=== PATIENT | male | born 1950 | race Caucasian/White ===

== ENCOUNTER 2018-03-13 11:17 | Outpatient (REF) | payer OTHER, SELFPAY ==
[2018-03-13 19:27] LABS: Anion Gap 10.1 mmol/L (3-11); BUN 17 mg/dL (7-18); CO2 24.9 mmol/L (21.0-32.0); CREATININE 0.88 mg/dL (0.70-1.30); Chloride 104 mmol/L (98-107); Glucose 107 mg/dL (70-100); Potassium 4.4 mmol/L (3.5-5.1); Sodium 139 mmol/L (136-145)
[2018-03-13 20:06] LABS: COMMENT (LAB VIEW ONLY) 35.31 mg/dL
== END 2018-03-13 11:18 ==
LOC: NCHCN 11:17
PROVIDERS: PCP Physician Assistant Medical; Visit Provider Physician Assistant Medical
DX: E11.9 Type 2 diabetes mellitus without complications (principal)
CPT/HCPCS: 80048; 82043; 82570

== ENCOUNTER 2018-09-13 11:18 | Outpatient (REF) | payer OTHER, SELFPAY ==
[2018-09-17 11:19] LABS: PSA, Screening 1.7 ng/ml (0-4.5)
== END 2018-09-13 11:38 ==
LOC: NCHCN 11:18
PROVIDERS: PCP Physician Assistant Medical; Visit Provider Physician Assistant Medical
DX: Z12.5 Encounter for screening for malignant neoplasm of prostate (principal); N40.0 Benign prostatic hyperplasia without lower urinary tract symptoms
CPT/HCPCS: 84153

== ENCOUNTER 2019-04-15 10:31 | Outpatient (REF) | payer OTHER, SELFPAY ==
[2019-04-15 19:12] LABS: COMMENT (LAB VIEW ONLY) 19.01 mg/dL; Microalb ug/mg Crea 12.6 ug/mg Cr
[2019-04-15 20:12] LABS: ALT 65 U/L (16-63); AST 34 U/L (15-37); Albumin 3.7 g/dL (3.4-5.0); Alkaline Phosphatase 71 U/L (46-116); BUN 20 mg/dL (7-18); Bilirubin, Total 0.5 mg/dL (0.2-1.0); CREATININE 1.03 mg/dL (0.70-1.30); Calcium 8.9 mg/dL (8.5-10.1); Calculated LDL 62 mg/dL; Chloride 104 mmol/L (98-107); Cholesterol 120 mg/dL (50-200); Glucose 200 mg/dL (70-100); HDL Cholesterol 48 mg/dL (40-60); Potassium 4.7 mmol/L (3.5-5.1); Sodium 138 mmol/L (136-145); Total Protein 6.2 g/dL (6.4-8.2); Triglyceride 53 mg/dL (30-150)
== END 2019-04-15 10:51 ==
LOC: NCHCN 10:31
PROVIDERS: PCP Physician Assistant Medical; Visit Provider Nurse Practitioner Family
DX: E11.9 Type 2 diabetes mellitus without complications (principal); E78.5 Hyperlipidemia, unspecified
CPT/HCPCS: 80053; 80061; 82043; 82570

== ENCOUNTER 2020-05-20 11:33 | Outpatient (REF) | payer OTHER, SELFPAY ==
[2020-05-20 22:41] LABS: Anion Gap 14.4 mmol/L (3-11); BUN 25 mg/dL (7-18); CO2 21.6 mmol/L (21.0-32.0); CREATININE 1.04 mg/dL (0.70-1.30); Calcium 9.5 mg/dL (8.5-10.1); Chloride 102 mmol/L (98-107); Glucose 195 mg/dL (74-106); Potassium 4.4 mmol/L (3.5-5.1); Sodium 138 mmol/L (136-145)
== END 2020-05-20 11:53 ==
LOC: NCHCN 11:33
PROVIDERS: PCP Physician Assistant Medical; Visit Provider Nurse Practitioner Family
DX: E11.9 Type 2 diabetes mellitus without complications (principal)
CPT/HCPCS: 80048

== ENCOUNTER 2020-11-30 15:04 | Outpatient (REF) | payer OTHER, SELFPAY ==
[2020-11-30 16:28] LABS: ALT 55 U/L (16-63); AST 28 U/L (15-37); Albumin 3.9 g/dL (3.4-5.0); Alkaline Phosphatase 69 U/L (46-116); Anion Gap 8.2 mmol/L (3-11); BUN 18 mg/dL (7-18); Bilirubin, Total 0.7 mg/dL (0.2-1.0); CO2 28.8 mmol/L (21.0-32.0); CREATININE 0.9 mg/dL (0.70-1.30); Calcium 9.4 mg/dL (8.5-10.1); Chloride 104 mmol/L (98-107); Glucose 130 mg/dL (74-106); Potassium 4.6 mmol/L (3.5-5.1); Sodium 141 mmol/L (136-145); Total Protein 6.3 g/dL (6.4-8.2)
[2020-11-30 16:32] LABS: Hemoglobin A1C 6.7 % (<5.7)
[2020-11-30 16:42] LABS: Calculated LDL 64 mg/dL (<100); Cholesterol 136 mg/dL (<200); HDL Cholesterol 51 mg/dL (40-60); Triglyceride 108 mg/dL (<150)
== END 2020-11-30 15:05 | disposition home or self-care (01) ==
LOC: NCHCN 15:04
PROVIDERS: PCP Physician Assistant Medical; Visit Provider Nurse Practitioner Family
DX: E11.9 Type 2 diabetes mellitus without complications (principal); E78.5 Hyperlipidemia, unspecified
CPT/HCPCS: 80053; 80061; 83036

== ENCOUNTER 2021-10-06 16:04 | Outpatient (REF) | payer OTHER, SELFPAY ==
[2021-10-06 22:29] LABS: ALT 59 U/L (16-63); AST 27 U/L (15-37); Albumin 3.9 g/dL (3.4-5.0); Alkaline Phosphatase 70 U/L (46-116); Anion Gap 9.1 mmol/L (3-11); BUN 18 mg/dL (7-18); Bilirubin, Total 0.7 mg/dL (0.2-1.0); CO2 25.9 mmol/L (21.0-32.0); CREATININE 0.9 mg/dL (0.70-1.30); Chloride 104 mmol/L (98-107); Glucose 187 mg/dL (74-106); Potassium 4.5 mmol/L (3.5-5.1); Sodium 139 mmol/L (136-145); Total Protein 6.4 g/dL (6.4-8.2)
== END 2021-10-06 16:05 | disposition home or self-care (01) ==
LOC: NCHCN 16:04
PROVIDERS: PCP Physician Assistant Medical; Visit Provider Nurse Practitioner Family
DX: E11.9 Type 2 diabetes mellitus without complications (principal)
CPT/HCPCS: 80053

== ENCOUNTER 2021-10-18 10:56 | Day surgery (SDC) | payer OTHER, SELFPAY ==
--- NOTE | 2021-10-18 07:13 | ANES.PREOP_ITS ---
General Info Date of Service Date Performed: 10/18/21 Height: 5 ft 11 in Weight: 99.79 kg Body Mass Index (BMI): 30.7 Surgical Procedure: Operation Date: 10/18/21 14:40 Proposed Procedure Side Surgeon p Cataract Extraction with IOL Implant Right Darien Biggs MD Meds Allergies and Home Medications Allergies Allergy/AdvReac Type Severity Reaction Status Date / Time No Known Allergies Allergy Verified 10/18/21 11:19 Home Medication Medication Instructions Recorded aspirin 81 mg capsule,delayed 81 mg PO DAILY 10/15/21 release canagliflozin 100 mg tablet 100 mg PO DAILY 10/15/21 (Invokana) cholecalciferol (vitamin D3) 25 25 mcg PO DAILY 10/15/21 mcg (1,000 unit) tablet (Vitamin D3) insulin glargine 100 unit/mL (3 35 unit SUBCUT HS 10/15/21 mL) subcutaneous pen (Lantus Solostar U-100 Insulin) lisinopril 2.5 mg tablet 2.5 mg PO DAILY 10/15/21 loratadine 10 mg tablet 10 mg PO DAILY 10/15/21 metformin 1,000 mg tablet 1,000 mg PO BID 10/15/21 multivitamin 1 tab PO DAILY 10/15/21 omega-3 fatty acids 1 cap PO DAILY 10/15/21 simvastatin 20 mg tablet 20 mg PO DAILY 10/15/21 Current Visit Medications: Current Medications Generic Name Dose Route Start Last Admin Trade Name Freq PRN Reason Stop Dose Admin Acetaminophen 1,000 mg 10/18/21 06:00 Acetaminophen 500 Mg Tab PO Q4H PRN PRN Miscellaneous Medication 0 ml 10/18/21 06:00 Prednisolone 1%, Moxifloxacin 0.5%, Nepafenac 0.1% 5ml Btl OD DIRECTED [facility] Miscellaneous Medication 0 ml 10/18/21 06:00 Tropicam./Phenyleph. (1/2.5%) 5 Ml Btl OD DIRECTED [facility] Tetracaine HCl 0 ml 10/18/21 06:00 Tetracaine 0.5% 4 Ml Btl OD DIRECTED [facility] Medical History Medical History (Updated 10/18/21 @ 11:17 by Kranthi Bethea) Balanitis BPH (benign prostatic hyperplasia) HLD (hyperlipidemia) Hx of colonic polyps penitentiary (current) use of insulin Onychomycosis Seasonal allergies Severe aortic stenosis Trigger finger Type II diabetes mellitus Medical History Comments:: Pt. states when he has versed and fentanyl states it takes him hours and hours to wake up. Surgical History Surgical History (Updated 10/18/21 @ 11:18 by Kranthi Bethea) Hx of appendectomy Hx of pilonidal cyst Hx of tonsillectomy Tobacco Smoking/Tobacco Use Status: Never Alcohol Alcohol Intake: never Substance Use Substance use: Never Substance use type: does not use Vital Signs and Lab Results Lab Results Blood Type / Crossmatch: No Data to Display Complete Blood Count: No Data to Display Complete Metabolic Panel: Sodium Level 139 mmol/L (136-145) 10/06/21 09:10/06/21 Potassium Level 4.5 mmol/L (3.5-5.1) 10/06/21:10/06/21 Chloride Level 104 mmol/L (98-107) 10/06/21:10/06/21 Carbon Dioxide Level 25.9 mmol/L (21.0-32.0) 10/06/21:10/06/21 Blood Urea Nitrogen 18 mg/dL (7-18) 10/06/21:10/06/21 Creatinine 0.9 mg/dL (0.70-1.30) 10/06/21:10/06/21 Estimated GFR/1.73 m2 >= 60.00 (mL/min/1.73m2) 10/06/21 09:10/06/21 Calcium Level 9.0 mg/dL (8.5-10.1) 10/06/21:10/06/21 Albumin 3.9 g/dL (3.4-5.0) 10/06/21:10/06/21 Glucose Level 187 mg/dL (74-106) H 10/06/21:10/06/21 Liver Function Panel: Alanine Aminotransferase (ALT/SGPT) 59 U/L (16-63) 10/06/21 09:30 10/06/21 Aspartate Amino Transf (AST/SGOT) 27 U/L (15-37) 10/06/21 09:30 10/06/21 Coagulation Panel: No Data to Display Cardiac Panel: No Data to Display Arterial Blood Gas: No Data to Display Venous Blood Gas: No Data to Display Pancreas Panel: No Data to Display Thyroid Panel: No Data to Display Infectious Disease: No Data to Display Blood Cultures: No Data to Display Toxicology Panel: No Data to Display Anesthesia Assessment and Plan Anesthesia History Personal History: Other Family History: No Family History of Anesthesia Complications Exercise Tolerance Exercise Tolerance: Metabolic Equivalents>4 Cardiac & Pulmonary Exam Cardiac Exam: Heart Murmur Present Pulmonary Exam: Clear Bilateral Breath Sounds Implantable Cardiac Device Does patient have a Pacemaker or an ICD?: No Airway Exam Known Difficult Airway: No Mallampati Class: 3 Mouth Opening: Narrow (< 3cm) Thyromental Distance: Greater than 3 cm Neck Range of Motion: Limited ROM Neck Circumference: Normal Teeth Condition: Normal Dentition ASA Classification ASA Score: ASA 4 Emergency Case?: No NPO Status NPO Status: NPO Clears >2 hours, Solids >8 hours Anesthesia Plan Resuscitation Status: Full Code Anesthesia Technique: MAC Anesthesia Airway Planned: Natural Airway Monitors Used: Standard Monitors Preoperative Comments:: 71 yo male for cataract removal. Sig PMHx: severe , HTN, DM. No MKO, no symptoms from his , is going to schedule a TAVR in the near future.
[2021-10-18 11:19] VITALS: BP 142/79; PULSE 86; RESP 16; TEMP 36.6; O2SAT 97
[2021-10-18] MEDS: Tropicam./Phenyleph. (1/2.5%) 5 ML BTL OD ×3 (11:30→11:46)
[2021-10-18 11:36] VITALS: BMI 30.7
[2021-10-18] MEDS: Balanced Salt Soln.-PLUS 500 ML BAG (12:38)
[2021-10-18] MEDS: Tetracaine 0.5% 4 ML BTL OD (12:38)
[2021-10-18] MEDS: Duovisc Viscoelastic System EACH 1 EACH (12:39)
[2021-10-18] MEDS: Lidocaine 2% Jelly 6 ML SYR (12:40)
[2021-10-18] MEDS: Povidone-Iodine Ophth 30 ML BTL (12:41)
[2021-10-18 12:54] VITALS: BP 128/81; PULSE 74; RESP 16; TEMP 36.6; O2SAT 95
--- NOTE | 2021-10-18 12:56 | W.PM.DSUDISC ---
Discharge Plan Disposition Patient Disposition: HOME Condition: Good Discharge Details Attending Provider: Darien Biggs Primary Care Provider: Kaykay Louise Home Meds and New Rx's Prescriptions: No Action multivitamin Tablet 1 tab PO DAILY 0RF aspirin 81 mg Capsule,Delayed Release(Dr/Ec) 81 mg PO DAILY 0RF simvastatin 20 mg Tablet 20 mg PO DAILY 0RF metformin 1,000 mg Tablet 1,000 mg PO BID 0RF lisinopril 2.5 mg Tablet 2.5 mg PO DAILY 0RF loratadine 10 mg Tablet 10 mg PO DAILY 0RF Fish Oil Capsule 1 cap PO DAILY 0RF cholecalciferol (vitamin D3) [Vitamin D3] 25 mcg (1,000 unit) Tablet 25 mcg PO DAILY 0RF Lantus Solostar U-100 Insulin 100 unit/mL (3 mL) Insulin Pen 35 unit SUBCUT HS 0RF Invokana 100 mg Tablet 100 mg PO DAILY 0RF Discharge Instructions Stand Alone Forms: Post-op Topical Cataract, Brooks Ganey (DSU) Discharge Orders Discharge Orders: Discharge Order (Routine); Ordered 10/18/21 Ordered By: Darien Biggs DS: Diagnosis Discharge Diagnosis (1) Nuclear sclerotic cataract of right eye: Status: Resolved
--- NOTE | 2021-10-18 12:57 | ROE_ITS ---
Date of service: 10/18/21 Time of Service: 12:57 Operative Note Operative Note DATE OF PROCEDURE: 10/18/21 PRE-OP DIAGNOSIS: Nuclear cataract, right eye POST-OP DIAGNOSIS: same PROCEDURE: Cataract extraction using phacoemulsification with intraocular lens implant, right eye SURGEON: Dairen Biggs ANESTHESIA TYPE: Local By Surgeon and MAC Refer to Anesthesia Record ESTIMATED BLOOD LOSS: 0 PATHOLOGY: none sent COMPLICATIONS: None Patient was transported to: same day Patient's condition: stable Implants: [employer] Ramos/JIHAN Tecnis [id number] Indications: Progressive visual loss due to cataract, right eye Procedure Description: CATARACT SURGERY OPERATIVE REPORT PREOPERATIVE DIAGNOSIS: 1. Nuclear cataract, right eye POSTOPERATIVE DIAGNOSIS: Same OPERATION: 1. Cataract extraction using phacoemulsification with posterior chamber intraocular lens implant, right eye. IOL: IOL Director Of Public Health/Model: Ramos & Ramos / JIHAN Tecnis [id number] IOL Power: + 21.0 diopters IOL Serial Number: [id number] Optic Diameter: 6.0mm Haptic/Overall Diameter: 13.0mm PHACO INFO: Vinayak[employer]perScouturion Vision System with OZil and Active Fluidics Cumulative Dispersed Energy (CDE): 9.88 seconds SURGEON: Darien Biggs MD, YUDI ANESTHESIA: Monitored Anesthesia Care (MAC), with local sub-tenon's anesthetic infiltration COMPLICATIONS: None SPECIMENS: None INDICATIONS FOR PROCEDURE: The patient is a 71-year-old male with history of diminished visual acuity in his right eye secondary to the development of nuclear cataract. He is significantly symptomatic that he desires cataract surgery and attempt to improve and maximizehis vision. PROCEDURE: The correct surgical eye was identified and marked as the right eye and the pupil was dilated in the preoperative area using mydriatics and cycloplegics. The dilated pupil size was 6.0 mm. The patient was brought to the operating room where cardiopulmonary monitoring was instituted and surgical time-out was performed, confirming the correct operative eye and IOL power. Topical anesthesia was administered and ophthalmic povidone-iodine 5% was instilled into the conjunctival fornices. Lidocaine gel was applied to the cornea and the jenny-ocular area was prepped with Betadine 10% solution and draped in the usual sterile fashion for intraocular surgery, including an aperture drape. A Tegaderm transparent film dressing was cut in half and used to cover the lashes and lid margins. Care was taken to sequester the lashes and lid margins under the Tegaderm dressing. A lid speculum was placed between the lids of the operative eye and the Vinayak LuxOR Revalia operating microscope was maneuvered into position. Jazz scissors were then used to make a conjunctival buttonhole approximately 6mm posterior to the limbus in the inferonasal quadrant. Blunt dissection was carried out to expose bare sclera, and a blunt-tipped sub-tenon?s anesthesia cannula was introduced and passed posteriorly along the globe where non- preserved plain lidocaine was injected into posterior sub-Tenon?s space. A sideport knife was used to make a paracentesis port inferotemporally. Intraocular phenylephrine/lidocaine was injected into the anterior chamber. The anterior chamber was filled with viscoelastic. A 2.4mm keratome knife was used to create a half-thickness groove at the limbus and then to construct a three- plane near-clear corneal tunnel extending 2.0mm into clear cornea superiort emporally. A flap was raised on the anterior capsule and capsulorhexis forceps were used to complete a continuous curvilinear capsulorhexis of 5.0 mm. Balanced salt solution was then used to perform cortical cleaving hydrodissection and nuclear hydrodelineation until the lens could be freely rotated within the capsular bag. The lens nucleus was then disassembled and removed within the capsular bag and iris plane using phacoemulsification. Residual cortical material was removed using the I/A handpiece. The posterior capsule was carefully polished to remove as much residual lens epithelial cells as safely possible. The capsular bag was then inflated and the anterior chamber deepened with viscoelastic. The lens implant described above was inserted into the capsular bag using the JIHAN [place] Injector. A Kuglen hook was used to dial the IOL into position. Residual viscoelastic was then removed first from posterior to the IOL, then from the anterior chamber using the I/A handpiece. The lens implant was noted to center nicely within the capsular bag. The incisions were stromally hydrated, and the anterior chamber was reformed using BSS. Then 0.5cc of moxifloxacin 1.0mg/ml were injected into the capsular bag and anterior chamber. The incisions were checked with a Weck spear and found to be secure. Several drops of ophthalmic povidone-iodine 5% were then applied to the eye followed by two drops of Imprimis combination prednisolone/moxifloxacin/nepafenac solution. The drapes were removed and a clear plastic protective eye shield was placed over the eye. The patient was then returned to Same Day Surgery in stable condition.
--- NOTE | 2021-10-18 13:04 | W.ANESPOSTOP ---
Postoperative Evaluation Date, Time and Location Date Performed: 10/18/21 Time Performed: 13:04 Patient Location: Day Surgery Unit Vital Signs Most Recent Imported Vital Signs: Most Recent Vital Signs Temp Pulse Resp BP Pulse Ox 36.6 C 74 16 128/81 95 10/18/21 12:54 10/18/21 12:54 10/18/21 12:54 10/18/21 12:54 10/18/21 12:54 Pain Score Most Recent Pain Score: Most Recent Pain Score Pain Level 0 10/18/21 11:19 Assessment Mental Status: Awake (Alert & Oriented to Patient Baseline) Airway and Respiratory Function: Patent airway with normal (patient baseline) respiratory exam Cardiovascular Function: Hemodynamically Stable Hydration Status: Adequately Hydrated Nausea & Vomiting: No Nausea or Vomiting Pain: Pt. Denies Any Pain Peripheral Nerve Block: Patient did not receive a nerve block
== END 2021-10-18 13:18 | disposition home or self-care (01) ==
PROVIDERS: PCP Nurse Practitioner Family; Visit Provider Ophthalmology
PROC: (CPT 66984; principal; 2021-10-18 14:30)
DX: H25.11 Age-related nuclear cataract, right eye (principal); E11.9 Type 2 diabetes mellitus without complications; E78.5 Hyperlipidemia, unspecified; Z79.4 Long term (current) use of insulin
CPT/HCPCS: 66984; V2632

== ENCOUNTER 2022-12-22 15:08 | Outpatient (REF) | payer MEDICARE, SELFPAY ==
[2022-12-22 19:12] LABS: ALT 51 U/L (16-63); AST 35 U/L (15-37); Albumin 3.7 g/dL (3.4-5.0); Alkaline Phosphatase 77 U/L (46-116); Anion Gap 9.2 mmol/L (3-11); BUN 16 mg/dL (7-18); Bilirubin, Total 0.6 mg/dL (0.2-1.0); CO2 26.8 mmol/L (21.0-32.0); Calcium 9.4 mg/dL (8.5-10.1); Chloride 104 mmol/L (98-107); Estimated GFR 78.98 (mL/min/1.73m2); Glucose 130 mg/dL (74-106); Potassium 4.6 mmol/L (3.5-5.1); Sodium 140 mmol/L (136-145); Total Protein 7.7 g/dL (6.4-8.2)
== END 2022-12-22 15:09 | disposition home or self-care (01) ==
LOC: NCHCN 15:08
PROVIDERS: PCP Nurse Practitioner Family; Visit Provider Nurse Practitioner Family
DX: E11.9 Type 2 diabetes mellitus without complications (principal); E78.5 Hyperlipidemia, unspecified
CPT/HCPCS: 80053

== ENCOUNTER 2023-08-08 15:01 | Outpatient (REF) | payer MEDICARE, SELFPAY ==
[2023-08-08 20:02] LABS: MCH 30.5 pg (27.0-33.0); MCHC 33.3 % (32.0-36.0); MCV 92 fL (80-95); MPV 9.8 fL (8.0-11.0); Platelet Count 192 10^3/uL (130-400); RBC 4.91 10^6/uL (4.36-5.78); RDW 13.5 % (11.8-14.1); RDW-SD 45.7 fL; WBC 6.62 10^3/uL (4.4-10.8)
[2023-08-08 20:19] LABS: Hemoglobin A1C 7.4 % (<5.7)
[2023-08-08 20:21] LABS: ALT 43 U/L (16-63); AST 34 U/L (15-37); Albumin 3.2 g/dL (3.4-5.0); Alkaline Phosphatase 98 U/L (46-116); Anion Gap 8.1 mmol/L (3-11); BUN 17 mg/dL (7-18); Bilirubin, Total 0.7 mg/dL (0.2-1.0); CO2 23.9 mmol/L (21.0-32.0); CREATININE 1.3 mg/dL (0.70-1.30); Calcium 9.2 mg/dL (8.5-10.1); Chloride 102 mmol/L (98-107); Estimated GFR 57.65 (mL/min/1.73m2); Glucose 148 mg/dL (74-106); Potassium 4.6 mmol/L (3.5-5.1); Sodium 134 mmol/L (136-145); Total Protein 9.2 g/dL (6.4-8.2)
== END 2023-08-08 15:02 | disposition home or self-care (01) ==
LOC: NCHCN 15:01
PROVIDERS: PCP Nurse Practitioner Family; Visit Provider Nurse Practitioner Family
DX: R53.83 Other fatigue (principal); R63.4 Abnormal weight loss; E11.9 Type 2 diabetes mellitus without complications
CPT/HCPCS: 80053; 85027; 83036; 84443

== ENCOUNTER 2024-03-26 15:03 | Outpatient (REF) | payer MEDICARE, SELFPAY ==
[2024-03-26 20:04] LABS: ALT 95 U/L (16-63); AST 62 U/L (15-37); Albumin 2.5 g/dL (3.4-5.0); Alkaline Phosphatase 466 U/L (46-116); Bilirubin, Direct 0.4 mg/dL (0.0-0.2); Bilirubin, Total 0.62 mg/dL (0.2-1.0); Total Protein 6.9 g/dL (6.4-8.2)
== END 2024-03-26 15:04 | disposition home or self-care (01) ==
LOC: NCHCN 15:03
PROVIDERS: PCP Nurse Practitioner Family; Visit Provider Nurse Practitioner Family
DX: R74.01 Elevation of levels of liver transaminase levels (principal)
CPT/HCPCS: 80076

== ENCOUNTER 2024-03-27 23:45 | Outpatient (REF) | payer MEDICARE, SELFPAY ==
[2024-03-27 20:10] LABS: GGT 246 U/L (15-85)
== END 2024-03-27 23:46 | disposition home or self-care (01) ==
LOC: NCHCN 23:45
PROVIDERS: PCP Nurse Practitioner Family; Visit Provider Nurse Practitioner Family
DX: R74.8 Abnormal levels of other serum enzymes (principal)
CPT/HCPCS: 82977

== ENCOUNTER 2024-05-07 15:00 | Outpatient (REF) | payer MEDICARE, SELFPAY ==
[2024-05-07 19:32] LABS: ALT 50 U/L (16-63); AST 48 U/L (15-37); Albumin 3.4 g/dL (3.4-5.0); Alkaline Phosphatase 110 U/L (46-116); Bilirubin, Total 0.54 mg/dL (0.2-1.0); Total Protein 9.4 g/dL (6.4-8.2)
[2024-05-08 19:30] LABS: PSA, Screening 2.2 ng/mL (<=6.5)
== END 2024-05-07 15:01 | disposition home or self-care (01) ==
LOC: NCHCN 15:00
PROVIDERS: PCP Nurse Practitioner Family; Visit Provider Nurse Practitioner Family
DX: F41.9 Anxiety disorder, unspecified (principal); Z12.5 Encounter for screening for malignant neoplasm of prostate
CPT/HCPCS: 80076; 84153

== ENCOUNTER 2024-08-12 13:55 | Outpatient (CLI) | payer MEDICARE, SELFPAY ==
[2024-08-12 13:53] LABS: Abs Immature Grans 0.01 10^3/uL (0.0-0.06); Absolute Basophil Count 0.04 10^3/uL (0.0-0.2); Absolute Eosinophil Count 0.06 10^3/uL (0.0-0.7); Absolute Lymphocyte Count 0.94 10^3/uL (1.2-3.4); Absolute Neutrophil Count 0.58 10^3/uL (1.2-6.7); HCT 43.7 % (40.0-50.0); HGB 14.3 g/dL (13.5-17.5); Immature Grans % 0.5 %; Lymphocytes % 46.3 %; MCH 29.9 pg (27.0-33.0); MCHC 32.7 % (32.0-36.0); MCV 91 fL (80-95); MPV 9.4 fL (8.0-11.0); Monocytes % 19.7 %; Neutrophils % 28.5 %; Platelet Count 117 10^3/uL (130-400); RBC 4.78 10^6/uL (4.36-5.78); RDW 15.1 % (11.8-14.1); RDW-SD 51.1 fL; WBC 2.03 10^3/uL (4.4-10.8)
[2024-08-12 14:12] LABS: ALT 53 U/L (16-63); AST 52 U/L (15-37); Alkaline Phosphatase 148 U/L (46-116); Anion Gap 7.5 mmol/L (3-11); BUN 18 mg/dL (7-18); Bilirubin, Total 0.47 mg/dL (0.2-1.0); CO2 27.5 mmol/L (21.0-32.0); Calcium 8.9 mg/dL (8.5-10.1); Chloride 106 mmol/L (98-107); Estimated GFR 78.49 (mL/min/1.73m2); Glucose 135 mg/dL (74-106); Potassium 4.6 mmol/L (3.5-5.1); Sodium 141 mmol/L (136-145); Total Protein 6.3 g/dL (6.4-8.2)
[2024-08-12 14:18] LABS: Diff Comment Agrees w/ Instrument; RBC Morphology Normal
[2024-08-13 12:11] LABS: IgA 35 mg/dL (85-499); IgG 375 mg/dL (610-1616); IgM 29 mg/dL (35-242); Kappa Free Light Chain 2.28 mg/dL (0.33-1.94)
[2024-08-13 12:38] LABS: Albumin 58.7 % (55.8-66.1); Albumin g/dL 3.2 g/dL (3.6-5.2); Comment (See Note); Monoclonal Spike g/dL 0.2 g/dL (None Seen); Total Protein 5.5 g/dL (6.3-8.2)
== END 2024-08-12 13:56 | disposition home or self-care (01) ==
LOC: LBO 13:55
PROVIDERS: PCP Nurse Practitioner Family; Visit Provider Internal Medicine
DX: C90.00 Multiple myeloma not having achieved remission (principal)
CPT/HCPCS: 36415; 80053; 82784; 83883; 84165; 85025

== ENCOUNTER 2024-08-30 02:19 | Outpatient (CLI) | payer MEDICARE, SELFPAY ==
[2024-08-30 15:38] LABS: Abs Immature Grans 0.02 10^3/uL (0.0-0.06); HCT 43.9 % (40.0-50.0); HGB 14.5 g/dL (13.5-17.5); MCH 29.8 pg (27.0-33.0); MCV 90 fL (80-95); MPV 11.4 fL (8.0-11.0); RBC 4.86 10^6/uL (4.36-5.78); RDW 14.7 % (11.8-14.1); RDW-SD 48.7 fL; WBC 3.31 10^3/uL (4.4-10.8)
[2024-08-30 16:24] LABS: Absolute Monocyte Count 0.03 10^3/uL (0.1-0.8); Absolute Neutrophil Count 2.78 10^3/uL (1.2-6.7); Atypical Lymphocytes % 7 %; Bands % 1 %
[2024-08-30 16:25] LABS: Diff Comment Manual Differential; RBC Morphology Normal
[2024-08-30 16:26] LABS: Platelet Count 96 10^3/uL (130-400)
[2024-08-30 16:41] LABS: ALT 50 U/L (16-63); AST 34 U/L (15-37); Albumin 3.2 g/dL (3.4-5.0); Alkaline Phosphatase 141 U/L (46-116); Anion Gap 10.8 mmol/L (3-11); BUN 14 mg/dL (7-18); Bilirubin, Total 0.71 mg/dL (0.2-1.0); CO2 25.2 mmol/L (21.0-32.0); CREATININE 0.9 mg/dL (0.70-1.30); Calcium 9.3 mg/dL (8.5-10.1); Chloride 105 mmol/L (98-107); Estimated GFR 89.07 (mL/min/1.73m2); Glucose 194 mg/dL (74-106); Potassium 4.5 mmol/L (3.5-5.1); Sodium 141 mmol/L (136-145)
[2024-09-02 10:46] LABS: IgA 46 mg/dL (85-499); IgG 252 mg/dL (610-1616); IgM 35 mg/dL (35-242); Kappa Free Light Chain 2.21 mg/dL (0.33-1.94); Lambda Free Light Chain 1.87 mg/dL (0.57-2.63)
[2024-09-02 13:06] LABS: Albumin 64.6 % (55.8-66.1); Albumin g/dL 3.6 g/dL (3.6-5.2); Total Protein 5.5 g/dL (6.3-8.2)
== END 2024-08-30 02:20 | disposition home or self-care (01) ==
LOC: LBO 02:19
PROVIDERS: PCP Nurse Practitioner Family; Visit Provider Internal Medicine
DX: C90.00 Multiple myeloma not having achieved remission (principal)
CPT/HCPCS: 36415; 80053; 82784; 83883; 84165; 85025

== ENCOUNTER 2024-10-11 00:44 | Outpatient (CLI) | payer MEDICARE, SELFPAY ==
[2024-10-11 10:54] LABS: Abs Immature Grans 0.01 10^3/uL (0.0-0.06); Absolute Basophil Count 0.04 10^3/uL (0.0-0.2); Absolute Eosinophil Count 0.08 10^3/uL (0.0-0.7); Absolute Lymphocyte Count 0.59 10^3/uL (1.2-3.4); Absolute Monocyte Count 0.12 10^3/uL (0.1-0.8); Basophils % 0.9 %; Eosinophils % 1.8 %; HCT 45.4 % (40.0-50.0); Immature Grans % 0.2 %; Lymphocytes % 13.3 %; MCH 29.8 pg (27.0-33.0); MCV 90 fL (80-95); MPV 9.9 fL (8.0-11.0); Monocytes % 2.7 %; Neutrophils % 81.1 %; Platelet Count 137 10^3/uL (130-400); RBC 5.04 10^6/uL (4.36-5.78); RDW 13.7 % (11.8-14.1); RDW-SD 45.7 fL; WBC 4.44 10^3/uL (4.4-10.8)
[2024-10-11 11:09] LABS: ALT 41 U/L (16-63); AST 27 U/L (15-37); Albumin 3.6 g/dL (3.4-5.0); Alkaline Phosphatase 111 U/L (46-116); BUN 16 mg/dL (7-18); Bilirubin, Total 0.7 mg/dL (0.2-1.0); Calcium 9.1 mg/dL (8.5-10.1); Chloride 106 mmol/L (98-107); Glucose 219 mg/dL (74-106); Potassium 4.8 mmol/L (3.5-5.1); Sodium 140 mmol/L (136-145); Total Protein 6.6 g/dL (6.4-8.2)
[2024-10-14 10:29] LABS: IgA 62 mg/dL (85-499); IgG 480 mg/dL (610-1616); IgM 33 mg/dL (35-242); Kappa Free Light Chain 1.24 mg/dL (0.33-1.94); Lambda Free Light Chain 7.57 mg/dL (0.57-2.63)
[2024-10-14 13:07] LABS: Albumin 65.9 % (55.8-66.1); Comment (See Note); Monoclonal Spike 2.5 % (None Seen); Monoclonal Spike g/dL 0.2 g/dL (None Seen)
== END 2024-10-11 00:45 | disposition home or self-care (01) ==
PROVIDERS: PCP Nurse Practitioner Family; Visit Provider Internal Medicine
DX: C90.00 Multiple myeloma not having achieved remission (principal)
CPT/HCPCS: 36415; 80053; 82784; 83883; 84165; 85025

== ENCOUNTER 2024-11-08 01:03 | Outpatient (CLI) | payer MEDICARE, SELFPAY ==
[2024-11-08 09:50] LABS: Abs Immature Grans 0.01 10^3/uL (0.0-0.06); Absolute Basophil Count 0.04 10^3/uL (0.0-0.2); Absolute Lymphocyte Count 0.63 10^3/uL (1.2-3.4); Absolute Monocyte Count 0.22 10^3/uL (0.1-0.8); Absolute Neutrophil Count 1.95 10^3/uL (1.2-6.7); Basophils % 1.2 %; Eosinophils % 12.3 %; HCT 43.1 % (40.0-50.0); HGB 14.2 g/dL (13.5-17.5); Immature Grans % 0.3 %; Lymphocytes % 19.4 %; MCH 29.6 pg (27.0-33.0); MCHC 32.9 % (32.0-36.0); MCV 90 fL (80-95); Monocytes % 6.8 %; Platelet Count 109 10^3/uL (130-400); RBC 4.79 10^6/uL (4.36-5.78); RDW 13.9 % (11.8-14.1); RDW-SD 46.6 fL; WBC 3.25 10^3/uL (4.4-10.8)
[2024-11-08 10:10] LABS: ALT 34 U/L (16-63); AST 19 U/L (15-37); Albumin 3.2 g/dL (3.4-5.0); Alkaline Phosphatase 86 U/L (46-116); Anion Gap 6.4 mmol/L (3-11); BUN 20 mg/dL (7-18); Bilirubin, Total 0.4 mg/dL (0.2-1.0); CO2 28.6 mmol/L (21.0-32.0); Calcium 9.2 mg/dL (8.5-10.1); Chloride 105 mmol/L (98-107); Glucose 226 mg/dL (74-106); Potassium 4.4 mmol/L (3.5-5.1); Sodium 140 mmol/L (136-145); Total Protein 5.9 g/dL (6.4-8.2)
[2024-11-11 10:25] LABS: IgA 54 mg/dL (85-499); IgG 312 mg/dL (610-1616); IgM 27 mg/dL (35-242); Kappa Free Light Chain 1.64 mg/dL (0.33-1.94); Lambda Free Light Chain 2.21 mg/dL (0.57-2.63)
[2024-11-11 12:47] LABS: Albumin 65.8 % (55.8-66.1); Albumin g/dL 3.6 g/dL (3.6-5.2); Comment (See Note); Monoclonal Spike 1.5 % (None Seen); Monoclonal Spike g/dL 0.1 g/dL (None Seen); Total Protein 5.4 g/dL (6.3-8.2)
== END 2024-11-08 01:04 | disposition home or self-care (01) ==
PROVIDERS: PCP Nurse Practitioner Family; Visit Provider Internal Medicine
DX: C90.00 Multiple myeloma not having achieved remission (principal)
CPT/HCPCS: 36415; 80053; 82784; 83883; 84165; 85025

== ENCOUNTER 2024-11-22 00:49 | Outpatient (CLI) | payer MEDICARE, SELFPAY ==
[2024-11-22 11:56] LABS: Absolute Basophil Count 0.05 10^3/uL (0.0-0.2); Absolute Eosinophil Count 0.05 10^3/uL (0.0-0.7); Absolute Lymphocyte Count 0.57 10^3/uL (1.2-3.4); Absolute Monocyte Count 0.12 10^3/uL (0.1-0.8); Absolute Neutrophil Count 2.43 10^3/uL (1.2-6.7); Basophils % 1.6 %; Eosinophils % 1.6 %; HCT 44.8 % (40.0-50.0); HGB 14.6 g/dL (13.5-17.5); Lymphocytes % 17.7 %; MCH 29.1 pg (27.0-33.0); MCHC 32.6 % (32.0-36.0); MCV 89 fL (80-95); MPV 10.8 fL (8.0-11.0); Monocytes % 3.7 %; Neutrophils % 75.4 %; Platelet Count 104 10^3/uL (130-400); RBC 5.02 10^6/uL (4.36-5.78); RDW 14.1 % (11.8-14.1); RDW-SD 45.8 fL; WBC 3.22 10^3/uL (4.4-10.8)
[2024-11-22 12:14] LABS: ALT 46 U/L (16-63); AST 33 U/L (15-37); Albumin 3.6 g/dL (3.4-5.0); Alkaline Phosphatase 85 U/L (46-116); Anion Gap 8.9 mmol/L (3-11); BUN 17 mg/dL (7-18); Bilirubin, Total 0.6 mg/dL (0.2-1.0); CO2 26.1 mmol/L (21.0-32.0); CREATININE 0.9 mg/dL (0.70-1.30); Calcium 9.4 mg/dL (8.5-10.1); Chloride 105 mmol/L (98-107); Estimated GFR 88.51 (mL/min/1.73m2); Glucose 233 mg/dL (74-106); Potassium 4.7 mmol/L (3.5-5.1); Sodium 140 mmol/L (136-145); Total Protein 6.6 g/dL (6.4-8.2)
[2024-11-25 07:53] LABS: IgA 67 mg/dL (85-499); IgG 373 mg/dL (610-1616); IgM 31 mg/dL (35-242); Kappa Free Light Chain 1.77 mg/dL (0.33-1.94); Lambda Free Light Chain 8.43 mg/dL (0.57-2.63)
[2024-11-25 13:30] LABS: Albumin 65.9 % (55.8-66.1); Comment (See Note); Monoclonal Spike 1.3 % (None Seen); Monoclonal Spike g/dL 0.1 g/dL (None Seen); Total Protein 6.1 g/dL (6.3-8.2)
== END 2024-11-22 00:50 | disposition home or self-care (01) ==
PROVIDERS: PCP Nurse Practitioner Family; Visit Provider Internal Medicine
DX: C90.00 Multiple myeloma not having achieved remission (principal)
CPT/HCPCS: 36415; 80053; 82784; 83883; 84165; 85025

== ENCOUNTER 2024-12-20 02:09 | Outpatient (CLI) | payer MEDICARE, SELFPAY ==
[2024-12-20 11:21] LABS: Abs Immature Grans 0.01 10^3/uL (0.0-0.06); Absolute Eosinophil Count 0.37 10^3/uL (0.0-0.7); Absolute Lymphocyte Count 0.72 10^3/uL (1.2-3.4); Absolute Monocyte Count 0.42 10^3/uL (0.1-0.8); Absolute Neutrophil Count 1.61 10^3/uL (1.2-6.7); Basophils % 3.1 %; Eosinophils % 11.5 %; HGB 14.2 g/dL (13.5-17.5); Immature Grans % 0.3 %; Lymphocytes % 22.3 %; MCH 29.2 pg (27.0-33.0); MCV 88 fL (80-95); MPV 10.5 fL (8.0-11.0); Neutrophils % 49.8 %; Platelet Count 128 10^3/uL (130-400); RBC 4.87 10^6/uL (4.36-5.78); RDW 14.7 % (11.8-14.1); RDW-SD 47.8 fL; WBC 3.23 10^3/uL (4.4-10.8)
[2024-12-20 11:43] LABS: ALT 31 U/L (16-63); AST 26 U/L (15-37); Albumin 3.4 g/dL (3.4-5.0); Alkaline Phosphatase 80 U/L (46-116); Anion Gap 10.3 mmol/L (3-11); BUN 15 mg/dL (7-18); Bilirubin, Total 0.5 mg/dL (0.2-1.0); CO2 24.7 mmol/L (21.0-32.0); Calcium 8.9 mg/dL (8.5-10.1); Chloride 104 mmol/L (98-107); Glucose 250 mg/dL (74-106); Potassium 4.4 mmol/L (3.5-5.1); Sodium 139 mmol/L (136-145); Total Protein 6.3 g/dL (6.4-8.2)
[2024-12-23 09:53] LABS: IgA 69 mg/dL (85-499); IgG 329 mg/dL (610-1616); IgM 29 mg/dL (35-242); Lambda Free Light Chain 2.08 mg/dL (0.57-2.63)
[2024-12-23 12:28] LABS: Albumin 64.2 % (55.8-66.1); Albumin g/dL 3.7 g/dL (3.6-5.2); Comment (See Note); Total Protein 5.7 g/dL (6.3-8.2)
== END 2024-12-20 02:10 | disposition home or self-care (01) ==
PROVIDERS: PCP Nurse Practitioner Family; Visit Provider Internal Medicine
DX: C90.00 Multiple myeloma not having achieved remission (principal)
CPT/HCPCS: 36415; 80053; 82784; 83883; 84165; 85025

== ENCOUNTER 2025-04-03 11:28 | Outpatient (CLI) | payer MEDICARE, SELFPAY ==
--- NOTE | 2025-04-03 08:30 | DI.RAD_ITS ---
Exam(s) XR HAND RT COMPLETE EXAM: XR HAND RT COMPLETE CLINICAL HISTORY: BILATERAL HAND PAIN. TECHNIQUE: 2D digital imaging was performed of the right hand. Three images were obtained. AP, lateral and oblique views were obtained. COMPARISON: No exams were available for comparison FINDINGS: BONES: No acute fracture is present. No bony destructive lesion is seen. JOINTS: No dislocation present. There is moderately severe osteoarthritis present characterized by joint space narrowing and osteophytes. The findings are most marked in the interphalangeal joints of the fingers. The carpus is also involved. SOFT TISSUE: Atherosclerotic calcification is present. 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 DATA REPOSITORY: RADIATION DOSE DELIVERED:
--- NOTE | 2025-04-03 08:30 | DI.RAD_ITS ---
Exam(s) XR HAND LT COMPLETE EXAM: XR HAND LT COMPLETE CLINICAL HISTORY: BILATERAL HAND PAIN. TECHNIQUE: 2D digital imaging was performed. COMPARISON: CR XR HAND RT COMPLETE from 04/03/2025 FINDINGS: 3 views No evidence of acute fracture or dislocation. There are severe consequences of probable prior inflammatory arthritis in the proximal interphalangeal joints of the 3rd, 4th, and 5th fingers which have now progressed to fusion across these joint spaces. There is relative sparing of the proximal interphalangeal joint of the 2nd-index finger as well as the interphalangeal joint of the thumb. There are advanced degenerative changes in the DIP joints the 2nd, 3rd, 4th, and 5th fingers. There is sparing of the metacarpophalangeal joints. There are mild-moderate degenerative changes in the 1st carpometacarpal joint. Remainder of the carpal row articulations appear unremarkable. IMPRESSION: Severe findings in left hand which are worse than what is seen in the opposite- right hand images performed same date. There has been progression to fusion across the proximal interphalangeal joints of the 3rd, 4th, and 5th fingers There are severe degenerative changes in the DIP joints of the 2nd, 3rd, 4th, and 5th fingers. There is relative sparing of the articulations of the thumb with the exception of some mild-moderate degenerative change at the articulation between the base of the thumb metacarpal and the trapezium bone of the distal carpal row. DATA REPOSITORY: RADIATION DOSE DELIVERED:
== END 2025-04-03 11:29 | disposition home or self-care (01) ==
LOC: DIORS 11:29
PROVIDERS: PCP Nurse Practitioner Family; Referring Provider Nurse Practitioner Family; Visit Provider Student in an Organized Health Care Education/Training Program
DX: M24.641 Ankylosis, right hand (principal); M24.642 Ankylosis, left hand; M19.031 Primary osteoarthritis, right wrist; M18.12 Unilateral primary osteoarthritis of first carpometacarpal joint, left hand; M19.041 Primary osteoarthritis, right hand; M19.042 Primary osteoarthritis, left hand
CPT/HCPCS: 99214; 73130

== ENCOUNTER 2025-06-25 14:58 | Outpatient (REF) | payer MEDICARE, SELFPAY | END 2025-06-25 14:59 | disposition home or self-care (01) | LOC: NCHCN 14:58 | PROVIDERS: PCP Nurse Practitioner Family; Visit Provider Nurse Practitioner Family | DX: E11.9 Type 2 diabetes mellitus without complications (principal) | CPT/HCPCS: 82043; 82570 ==